=== PATIENT | female | born 1950 | race Caucasian/White ===

== ENCOUNTER → 2019-11-26 | Outpatient (CLI) | payer MEDICARE ==
[~2019-11-26] MED LIST: GADOBENATE DIMEGLUMINE 1 ML IV ONE
[2019-11-26 09:42] LABS: BLOOD UREA NITROGEN 8 mg/dL (7-26); BUN/CREATININE RATIO 14 (6-25); CREATININE, SERUM 0.57 mg/dL (0.57-1.11); EST GLOMERULAR FILTRATION RATE > 60 ML/MIN (60-)
--- NOTE | 2019-11-26 12:53 | Diagnostic Imaging Report ---
EXAM: CT left wrist WITHOUT contrast INDICATION: Wrist pain. Fall. Decreased range of motion. COMPARISON: None . TECHNIQUE: Left wrist was scanned utilizing a multidetector helical scanner without administration of IV contrast. Coronal and sagittal reformations were obtained. Routine protocol was performed. IV CONTRAST: None ORAL CONTRAST: Water COMPLICATIONS: None RADIATION DOSE: Total DLP: 110 mGy*cm Estimated effective dose: (DLP x 0.015 x size factor) mSv CTDIvol has been reviewed. It is below the limits set by the Radiation Protocol Committee (RPC). Dose modulation, iterative reconstruction, and/or weight based adjustment of the mA/kV was utilized to reduce the radiation dose to as low as reasonably achievable. FINDINGS: Comminuted intra-articular impaction type fracture involving the distal radius with extension dorsally involving Kevin's tubercle. Soft tissue edema about the wrist with small wrist joint effusion. No radiopaque foreign body. Scattered degenerative arthrosis most pronounced at the first carpal/metacarpal articulation. Old appearing ulnar styloid fracture fragment. Impression: Comminuted intra-articular impaction type fracture involving the distal radius with extension dorsally involving Kevin's tubercle. Signed by: Dr. Compa Álvarez M.D. on 11/26/2019 12:50 PM
--- NOTE | 2019-11-26 14:46 | Diagnostic Imaging Report ---
History: Headache, dizziness, meningioma, frequent falls Comparison studies: Brain MRIs 07/19/2011 and 07/07/2010 Technique: Sagittal and axial T2, axial DWI, precontrast axial T1 FLAIR, axial T2 FLAIR, axial T2*GRE and axial, coronal and sagittal T1 FS. Intravenous contrast: 11 cc of Gadavist. Findings: Scalp: No abnormal signal. No masses. Bone marrow: Normal in signal intensity. Brain sulci: Appropriate for age. Ventricles: Normal in size . No hydrocephalus. Extra axial spaces: Enhancing 11 mm x 9 mm x 12 mm (SI x AP x TV) dural based lesion at the right median superior parietal convexity without significant mass effect has minimally increased in size from the prior 08/19/2011 For differences in technique and slice selection (previously 10 mm in greatest dimension). Parenchyma: A 5 mm lesion with blooming artifact on the T2*GRE sequence related to prior hemorrhage in the right ventral ronen without surrounding edema is unchanged and is compatible with a cavernous malformation. No other mass or hemorrhage. No acute ischemia or enhancing abnormalities. A few scattered T2 FLAIR hyperintense foci in the supratentorial white matter which are mildly confluent in the bilateral periatrial periventricular white matter are nonspecific but are most compatible with chronic microvascular ischemic changes. Suprasellar region: No abnormalities. Craniocervical junction: Patent foramen magnum. No Chiari one malformation. Vessels: Normal flow-voids in the arteries and sinuses. Incidental findings: Bilateral intraocular lens replacements. Partially imaged postsurgical changes prior ACDF in the cervical spine. IMPRESSION: 1. A 12 mm right paramedian superior parietal meningioma without significant mass effect has minimally increased in size on the order of approximately 2 mm when compared to the prior 07/19/2011 brain MRI. 2. No other significant changes from the prior brain MRI of 07/19/2011. 3. Unchanged right pontine cavernous malformation. 4. Mild microvascular ischemic changes. Signed by: Dr. Jacinto Lees M.D. on 11/26/2019 2:43 PM
== END ==
LOC: MRI 08:40
PROVIDERS: ATTEND Family Medicine
DX: M25.532 Pain in left wrist (principal); S62.015A Nondisplaced fracture of distal pole of navicular [scaphoid] bone of left wrist, initial encounter for closed fracture; W19.XXXA Unspecified fall, initial encounter
CPT/HCPCS: 36415; 70553; 73200; 82565; 84520; A9577

== ENCOUNTER → 2020-08-19 | Outpatient (CLI) | payer MEDICARE ==
--- NOTE | 2020-08-19 12:21 | Diagnostic Imaging Report ---
Exam: Bone mineral density study. History: Osteopenia. Comparison: None Discussion: Evaluation of the left hip and lumbar spine was performed utilizing DEXA Hologic bone densitometer. The study is technically adequate. Left hip total bone mineral density: 0.507gm/cm2, T-score is -3.6, Z-score is -2.1. Left hip femoral neck bone mineral density: 0.470gm/cm2, T-score is -3.4, Z-score is -1.7. Lumbar spine total bone mineral density:0.763gm/cm2, T-score is-2.6, Z-score is -0.6. Impression: 1. Osteoporosis of the left hip, fracture risk is I 2. Osteoporosis of the lumbar spine, fracture risk is high Least significant change (LSC) for bone mineral density as provided by position clerk is 0.023 g/cm2 for lumbar spine and 0.027 g/cm2 for total hip. 10 -year fracture risk per WHO Fracture Risk Assessment Tool (FRAX) for: Not reported because some T-scores at or below -2.5 The patient's fracture risk is compared to an age-matched control. Medical evaluation for secondary causes of low bone bone mineral density may be appropriate. Correlate clinically for the necessity and timing of the next bone mineral density study. Signed by: Dr. Compa Álvarez M.D. on 08/19/2020 12:18 PM
== END ==
LOC: MAMMO 10:36
PROVIDERS: ATTEND Family Medicine
DX: Z12.31 Encounter for screening mammogram for malignant neoplasm of breast (principal); Z13.820 Encounter for screening for osteoporosis
CPT/HCPCS: 77067; 77080

== ENCOUNTER → 2021-03-15 | Outpatient (CLI) | payer MEDICARE | LOC: MRI 09:01 | PROVIDERS: ATTEND Psychiatry & Neurology Neurology | DX: M47.812 Spondylosis without myelopathy or radiculopathy, cervical region (principal); R20.0 Anesthesia of skin; M62.838 Other muscle spasm; G89.4 Chronic pain syndrome; Z98.890 Other specified postprocedural states; G43.711 Chronic migraine without aura, intractable, with status migrainosus; D32.9 Benign neoplasm of meninges, unspecified; Q28.3 Other malformations of cerebral vessels | CPT/HCPCS: 70553; 72156 ==

== ENCOUNTER 2021-12-28 19:37 | Inpatient (IN) | payer MEDICARE ==
[~2021-12-28] VITALS: Ht 152.4 cm; Wt 56.7 kg
[2021-12-28 20:46] LABS: BASOPHILS % 0.7 % (0.0-1.0); EOSINOPHILS # (AUTO) 0.2 (0.0-0.4); EOSINOPHILS % 3.9 % (0.0-6.0); HEMATOCRIT 38.6 % (34.2-44.1); HEMOGLOBIN 12.5 g/dL (12.0-16.0); LYMPHOCYTES # (AUTO) 2.2 (1.0-3.2); LYMPHOCYTES % 54.4 % (18.0-39.1); MEAN CORPUSCULAR HEMOGLOBIN 30.8 pg (28-32); MEAN CORPUSCULAR HGB CONC 32.4 g/dL (31-35); MEAN CORPUSCULAR VOLUME 95.1 fL (81-99); MONOCYTES # (AUTO) 0.5 (0.2-0.8); MONOCYTES % 11.6 % (4.4-11.3); NEUTROPHILS # (AUTO) 1.2 (2.1-6.9); NEUTROPHILS % 28.9 % (38.7-80.0); PLATELET COUNT 260 x10e3/uL (140-360); RED BLOOD COUNT 4.06 x10e6/uL (3.6-5.1); RED CELL DISTRIBUTION WIDTH 13.8 % (11.7-14.4)
[2021-12-28 20:54] LABS: INR 0.82; PROTHROMBIN TIME 12.1 seconds (11.9-14.5)
[2021-12-28 21:04] LABS: ALBUMIN 3.6 g/dL (3.5-5.0); ALBUMIN/GLOBULIN RATIO 1.5 (0.8-2.0); ANION GAP 13.3 mmol/L (8-16); CALCIUM 8.5 mg/dL (8.4-10.2); CREATININE, SERUM 0.59 mg/dL (0.57-1.11); POTASSIUM 3.3 mmol/L (3.5-5.1)
[2021-12-28 21:11] LABS: CREATINE KINASE MB 3.3 ng/mL (0-5.0)
[2021-12-28 22:30] VITALS: BP 134/85
[2021-12-29] VITALS (7 sets, daily range): BP systolic 105–134; BP diastolic 70–85
[2021-12-29] MEDS ORDERED: LOPRESSOR25 MG PO (03:45)
[2021-12-29] MEDS ORDERED: TEMAZEPAM15 MG PO (03:45)
[2021-12-29] MEDS ORDERED: ULTRAM50 MG PO (03:45)
[2021-12-29] MEDS ORDERED: MELOXICAM7.5 MG PO (03:45)
[2021-12-29] MEDS ORDERED: SERTRALINE HCL50 MG PO (03:45)
[2021-12-29] MEDS ORDERED: NEURONTIN300 MG PO (03:45)
[2021-12-29 05:37] LABS: EOSINOPHILS # (AUTO) 0.1 (0.0-0.4); EOSINOPHILS % 3.2 % (0.0-6.0); HEMATOCRIT 37.6 % (34.2-44.1); HEMOGLOBIN 12.2 g/dL (12.0-16.0); LYMPHOCYTES # (AUTO) 1.5 (1.0-3.2); LYMPHOCYTES % 47.9 % (18.0-39.1); MEAN CORPUSCULAR HEMOGLOBIN 30.7 pg (28-32); MEAN CORPUSCULAR HGB CONC 32.4 g/dL (31-35); MEAN CORPUSCULAR VOLUME 94.7 fL (81-99); MONOCYTES # (AUTO) 0.3 (0.2-0.8); MONOCYTES % 10.5 % (4.4-11.3); NEUTROPHILS # (AUTO) 1.2 (2.1-6.9); NEUTROPHILS % 36.8 % (38.7-80.0); PLATELET COUNT 263 x10e3/uL (140-360); RED BLOOD COUNT 3.97 x10e6/uL (3.6-5.1); RED CELL DISTRIBUTION WIDTH 13.7 % (11.7-14.4)
[2021-12-29 06:03] LABS: ALBUMIN 3.3 g/dL (3.5-5.0); ALBUMIN/GLOBULIN RATIO 1.5 (0.8-2.0); CALCIUM 8.1 mg/dL (8.4-10.2); CREATININE, SERUM 0.58 mg/dL (0.57-1.11)
[2021-12-29] MEDS: ACETAMINOPHEN 325 MG TAB PO PRN (06:31)
[2021-12-29] MEDS: METOPROLOL TARTRATE 50 MG TAB PO SCH ×3 (10:26→22:00)
[2021-12-29] MEDS: MELOXICAM 7.5 MG TAB PO SCH ×2 (10:27→17:41)
[2021-12-29] MEDS: GABAPENTIN 300 MG CAP PO SCH ×3 (10:27→22:00)
[2021-12-29] MEDS: TRAMADOL HCL 50 MG TAB PO PRN ×3 (10:41→22:10)
[2021-12-29] MEDS: SERTRALINE HCL 50 MG TAB PO SCH (22:00)
[2021-12-29] MEDS: TEMAZEPAM 15 MG CAP PO PRN (22:10)
[2021-12-30] VITALS (8 sets, daily range): BP systolic 105–139; BP diastolic 67–89
[2021-12-30] MEDS: ACETAMINOPHEN 325 MG TAB PO PRN (05:01)
[2021-12-30] MEDS: TRAMADOL HCL 50 MG TAB PO PRN (07:50)
[2021-12-30] MEDS: MELOXICAM 7.5 MG TAB PO SCH ×2 (08:55→16:05)
[2021-12-30] MEDS: GABAPENTIN 300 MG CAP PO SCH ×3 (08:55→20:31)
[2021-12-30] MEDS: METOPROLOL TARTRATE 50 MG TAB PO SCH ×3 (09:00→20:31)
[2021-12-30] MEDS ORDERED: HYDROMORPHONE 1MG/1ML INJ IV PRN ×2 (11:30→13:45)
[2021-12-30] MEDS ORDERED: ONDANSETRON HCL INJ 2MG/ML 2ML 2 MG/ML VIAL ONE (12:18)
[2021-12-30] MEDS ORDERED: POVIDONE IODINE 0.05% 0.05 % ML PO ONE (12:18)
[2021-12-30] MEDS ORDERED: PROPOFOL IV EMULSION 10 MG/ML 20 ML VIAL ONE (12:18)
[2021-12-30] MEDS ORDERED: SEVOFLURANE INHAL SOLN 250 ML PEN BTL ONE (12:18)
[2021-12-30] MEDS ORDERED: EPHEDRINE SULFATE INJ 50 MG/ML VIAL ONE (12:18)
[2021-12-30] MEDS ORDERED: LIDOCAINE HCL 2% LOCAL INJ 5 ML SDV VIAL INJ ONE (12:18)
[2021-12-30] MEDS ORDERED: DEXAMETHASONE SOD PHOS INJ 4 MG/ML SDV ONE (12:18)
[2021-12-30] MEDS ORDERED: SKELAXIN800 MG PO (13:41)
[2021-12-30] MEDS: METAXALONE 800 MG TAB PO SCH ×2 (14:10→20:31)
[2021-12-30] MEDS ORDERED: BUPIVACAINE 0.25% 30ML SDV ONE (17:22)
[2021-12-30] MEDS ORDERED: FENTANYL CITRATE/PF 100MCG/2 ML INJ ONE (17:35)
[2021-12-30] MEDS: SERTRALINE HCL 50 MG TAB PO SCH (20:31)
[2021-12-30] MEDS: TEMAZEPAM 15 MG CAP PO PRN (20:31)
[2021-12-30] MEDS: HYDROMORPHONE 1MG/1ML INJ IV PRN (20:31)
[2021-12-30] MEDS ORDERED: SODIUM CHLORIDE 0.9% 250ML 250 ML ONE (20:45)
[2021-12-30] MEDS: Cefazolin 1 GM in SODIUM CHLORIDE 0.9% 50ML 50 ML IV SCH (20:51)
[2021-12-31] VITALS (8 sets, daily range): BP systolic 100–134; BP diastolic 63–88
[2021-12-31] MEDS: HYDROMORPHONE 1MG/1ML INJ IV PRN ×3 (00:29→07:55)
[2021-12-31 05:08] LABS: BASOPHILS % 0.1 % (0.0-1.0); EOSINOPHILS % 0.1 % (0.0-6.0); HEMATOCRIT 37.8 % (34.2-44.1); HEMOGLOBIN 12.2 g/dL (12.0-16.0); LYMPHOCYTES # (AUTO) 1.3 (1.0-3.2); LYMPHOCYTES % 14.8 % (18.0-39.1); MEAN CORPUSCULAR HGB CONC 32.3 g/dL (31-35); MEAN CORPUSCULAR VOLUME 96.2 fL (81-99); MONOCYTES # (AUTO) 0.6 (0.2-0.8); MONOCYTES % 6.4 % (4.4-11.3); NEUTROPHILS # (AUTO) 6.7 (2.1-6.9); NEUTROPHILS % 78.2 % (38.7-80.0); PLATELET COUNT 247 x10e3/uL (140-360); RED BLOOD COUNT 3.93 x10e6/uL (3.6-5.1)
[2021-12-31] MEDS: Cefazolin 1 GM in SODIUM CHLORIDE 0.9% 50ML 50 ML IV SCH (05:18)
[2021-12-31 05:33] LABS: ANION GAP 13.5 mmol/L (8-16); CALCIUM 8.4 mg/dL (8.4-10.2); CREATININE, SERUM 0.6 mg/dL (0.57-1.11); POTASSIUM 4.5 mmol/L (3.5-5.1)
[2021-12-31] MEDS: GABAPENTIN 300 MG CAP PO SCH ×3 (08:38→21:01)
[2021-12-31] MEDS: MELOXICAM 7.5 MG TAB PO SCH ×2 (08:38→16:07)
[2021-12-31] MEDS: METOPROLOL TARTRATE 50 MG TAB PO SCH ×3 (08:38→21:57)
[2021-12-31] MEDS: METAXALONE 800 MG TAB PO SCH ×3 (08:38→21:01)
[2021-12-31] MEDS ORDERED: TRAMADOL HCL 50 MG TAB PO PRN (11:15)
[2021-12-31] MEDS ORDERED: KETOROLAC TROMETHAMINE 30 MG/ML VIAL IV ONE (11:15)
[2021-12-31] MEDS: PANTOPRAZOLE SOD 40 MG TABEC PO SCH (12:01)
[2021-12-31] MEDS: HYDROCODONE/APAP 7.5MG-325MG 1 EA TAB PO PRN ×2 (12:59→21:01)
[2021-12-31] MEDS: SERTRALINE HCL 50 MG TAB PO SCH (21:01)
[2021-12-31] MEDS: TEMAZEPAM 15 MG CAP PO PRN (22:46)
[2022-01-01] VITALS: BP 105/69
[2022-01-01 04:30] VITALS: BP 110/74
[2022-01-01] MEDS: HYDROCODONE/APAP 7.5MG-325MG 1 EA TAB PO PRN (04:36)
[2022-01-01 05:35] LABS: BASOPHILS % 0.3 % (0.0-1.0); EOSINOPHILS # (AUTO) 0.2 (0.0-0.4); EOSINOPHILS % 2.8 % (0.0-6.0); HEMOGLOBIN 11.6 g/dL (12.0-16.0); LYMPHOCYTES # (AUTO) 1.5 (1.0-3.2); MEAN CORPUSCULAR HEMOGLOBIN 31.2 pg (28-32); MEAN CORPUSCULAR HGB CONC 33.1 g/dL (31-35); MEAN CORPUSCULAR VOLUME 94.1 fL (81-99); MONOCYTES # (AUTO) 0.4 (0.2-0.8); MONOCYTES % 6.2 % (4.4-11.3); NEUTROPHILS % 65.4 % (38.7-80.0); PLATELET COUNT 215 x10e3/uL (140-360); RED BLOOD COUNT 3.72 x10e6/uL (3.6-5.1); RED CELL DISTRIBUTION WIDTH 13.9 % (11.7-14.4)
[2022-01-01 05:45] LABS: ANION GAP 10.7 mmol/L (8-16); CALCIUM 7.7 mg/dL (8.4-10.2); CREATININE, SERUM 0.54 mg/dL (0.57-1.11); POTASSIUM 4.7 mmol/L (3.5-5.1)
[2022-01-01 07:51] VITALS: BP 138/82
[2022-01-01 07:59] VITALS: BP 138/82
[2022-01-01] MEDS: METOPROLOL TARTRATE 50 MG TAB PO SCH (08:46)
[2022-01-01] MEDS: METAXALONE 800 MG TAB PO SCH (08:46)
[2022-01-01] MEDS: PANTOPRAZOLE SOD 40 MG TABEC PO SCH (08:46)
[2022-01-01] MEDS: MELOXICAM 7.5 MG TAB PO SCH (08:46)
[2022-01-01] MEDS: GABAPENTIN 300 MG CAP PO SCH (08:46)
[2022-01-01] MEDS ORDERED: OYST-CAL-D 500MG TABLET PO ONE (09:15)
[2022-01-01] MEDS ORDERED: HYDROCODON-ACE1 EA12 PO (10:55)
[2022-01-01 11:12] VITALS: BP 128/93
== END 2022-01-01 12:18 | disposition home or self-care (01) | DRG 502 ==
LOC: ER 19:45 → ERHOLD 21:07 → MED/SURG 22:10
PROC: 0KCL0ZZ Extirpation of Matter from Left Abdomen Muscle, Open Approach (ICD-10-PCS; principal; 2021-12-30 16:51)
DX: M79.81 Nontraumatic hematoma of soft tissue (principal); I10 Essential (primary) hypertension; Z91.041 Radiographic dye allergy status; Z20.822 Contact with and (suspected) exposure to COVID-19; F41.9 Anxiety disorder, unspecified; G89.29 Other chronic pain
CPT/HCPCS: 36415; 80048; 80053; 82550; 82553; 84484; 85025; 85610; 93005; 94799; 99284; J0690; J1100; J1170; J1885; J2001; J2405; J3010; J7050; U0002

== ENCOUNTER → 2022-03-27 | Day surgery (SDC) | payer MEDICARE ==
[2022-03-23 08:42] LABS: BASOPHILS % 0.6 % (0.0-1.0); EOSINOPHILS # (AUTO) 0.1 (0.0-0.4); EOSINOPHILS % 1.9 % (0.0-6.0); HEMOGLOBIN 12.2 g/dL (12.0-16.0); LYMPHOCYTES # (AUTO) 1.4 (1.0-3.2); LYMPHOCYTES % 19.5 % (18.0-39.1); MEAN CORPUSCULAR HEMOGLOBIN 31.7 pg (28-32); MEAN CORPUSCULAR HGB CONC 31.3 g/dL (31-35); MEAN CORPUSCULAR VOLUME 101.3 fL (81-99); MONOCYTES # (AUTO) 0.6 (0.2-0.8); MONOCYTES % 8.9 % (4.4-11.3); NEUTROPHILS % 68.8 % (38.7-80.0); PLATELET COUNT 276 x10e3/uL (140-360); RED BLOOD COUNT 3.85 x10e6/uL (3.6-5.1); RED CELL DISTRIBUTION WIDTH 14.7 % (11.7-14.4)
[~2022-03-27] MED LIST changes: +FENTANYL CITRATE/PF 100MCG/2 ML INJ ONE; -GADOBENATE DIMEGLUMINE 1 ML IV ONE; +GLUCAGON FOR INJ 1 MG VIAL ONE; +HYDROCODON-ACE1 EA12 PO; +HYOSCYAMINE SULFATE 0.5 MG/ML INJ ONE; +LIDOCAINE HCL 2% LOCAL INJ 5 ML SDV VIAL INJ ONE; +LOPRESSOR25 MG PO; +MELOXICAM7.5 MG PO; +MIDAZOLAM HCL 2 MG/2 ML VIAL ONE; +NEURONTIN300 MG PO; +PROPOFOL IV EMULSION 10 MG/ML 20 ML VIAL ONE; +SERTRALINE HCL50 MG PO; +SKELAXIN800 MG PO; +TEMAZEPAM15 MG PO; +ULTRAM50 MG PO
[2022-03-27 09:10] VITALS: BP 122/83
== END | disposition home or self-care (01) ==
LOC: OR 06:53
PROVIDERS: ATTEND Internal Medicine Gastroenterology
DX: K59.09 Other constipation (principal); D12.0 Benign neoplasm of cecum; K63.89 Other specified diseases of intestine; K57.30 Diverticulosis of large intestine without perforation or abscess without bleeding; K64.8 Other hemorrhoids; Z71.3 Dietary counseling and surveillance; I10 Essential (primary) hypertension; R00.1 Bradycardia, unspecified; Z01.810 Encounter for preprocedural cardiovascular examination; Z01.812 Encounter for preprocedural laboratory examination; Z20.822 Contact with and (suspected) exposure to COVID-19; Z79.899 Other long term (current) drug therapy; Z86.2 Personal history of diseases of the blood and blood-forming organs and certain disorders involving the immune mechanism
CPT/HCPCS: 0223U; 36415; 45380; 45385; 85025; 93005; J1610; J1980; J2001; J2250; J2704; J3010; 45378

== ENCOUNTER 2022-03-30 12:07 | Emergency (ER) | payer MEDICARE, OTHER ==
[~2022-03-30] VITALS: Ht 152.4 cm; Wt 56.7 kg
[~2022-03-30 12:07] MED LIST changes: -FENTANYL CITRATE/PF 100MCG/2 ML INJ ONE; -GLUCAGON FOR INJ 1 MG VIAL ONE; -HYOSCYAMINE SULFATE 0.5 MG/ML INJ ONE; -LIDOCAINE HCL 2% LOCAL INJ 5 ML SDV VIAL INJ ONE; -MIDAZOLAM HCL 2 MG/2 ML VIAL ONE; -PROPOFOL IV EMULSION 10 MG/ML 20 ML VIAL ONE
[2022-03-30] MEDS ORDERED: ONDANSETRON HCL INJ 2MG/ML 2ML 2 MG/ML VIAL IV STA (12:51)
[2022-03-30] MEDS ORDERED: SODIUM CHLORIDE 0.9% 1000ML 1,000 ML IV STA (12:51)
[2022-03-30 13:20] LABS: BASOPHILS % 0.6 % (0.0-1.0); EOSINOPHILS % 0.8 % (0.0-6.0); HEMOGLOBIN 8.3 g/dL (12.0-16.0); LYMPHOCYTES # (AUTO) 1.2 (1.0-3.2); LYMPHOCYTES % 24.4 % (18.0-39.1); MEAN CORPUSCULAR HEMOGLOBIN 31.7 pg (28-32); MEAN CORPUSCULAR HGB CONC 31.9 g/dL (31-35); MEAN CORPUSCULAR VOLUME 99.2 fL (81-99); MONOCYTES # (AUTO) 0.5 (0.2-0.8); MONOCYTES % 11.2 % (4.4-11.3); NEUTROPHILS % 62.6 % (38.7-80.0); PLATELET COUNT 252 x10e3/uL (140-360); RED BLOOD COUNT 2.62 x10e6/uL (3.6-5.1); RED CELL DISTRIBUTION WIDTH 14.4 % (11.7-14.4)
[2022-03-30] MEDS ORDERED: Morphine 2mg Syringe 2 MG/ML SYR IV ONE (13:30)
[2022-03-30 13:31] LABS: INR 0.9
[2022-03-30 13:32] LABS: PARTIAL THROMBOPLASTIN TIME 28.3 seconds (23.8-35.5)
[2022-03-30 13:41] LABS: ALBUMIN/GLOBULIN RATIO 1.1 (0.8-2.0); ANION GAP 13.7 mmol/L (8-16); CALCIUM 8.1 mg/dL (8.4-10.2); CREATININE, SERUM 0.62 mg/dL (0.57-1.11); POTASSIUM 3.7 mmol/L (3.5-5.1)
[2022-03-30 13:48] LABS: CREATINE KINASE MB 1.7 ng/mL (0-5.0)
[2022-03-30] MEDS ORDERED: IOPAMIDOL 370 MG/ML 100 ML INFUS..BTL INJ ONE ×2 (13:59→14:32)
[2022-03-30 14:16] LABS: CLARITY,URINE CLEAR (CLEAR); COLOR,URINE YELLOW (YELLOW)
[2022-03-30 14:17] LABS: BACTERIA,URINE RARE /HPF; EPITHELIAL CELLS,URINE RARE /LPF; KETONES,URINE NEGATIVE (NEGATIVE); LEUKOCYTE ESTERASE ,URINE NEGATIVE (NEGATIVE); NITRITE,URINE NEGATIVE (NEGATIVE); PROTEIN,URINE DIPSTICK NEGATIVE (NEGATIVE); RBC,URINE 0-5 /HPF (0-5); URINE UROBILINOGEN 0.2 mg/dL (0.2 - 1); WBC,URINE (MAN) 0-5 /HPF (0-5)
[2022-03-30] MEDS ORDERED: SODIUM CHLORIDE 0.9% 250ML 250 ML IV ONE (15:15)
[2022-03-30 16:17] VITALS: BP 119/89
== END 2022-03-30 16:00 | disposition other institution (70) ==
LOC: ER 12:26
DX: R10.32 Left lower quadrant pain (principal); S36.892A Contusion of other intra-abdominal organs, initial encounter; D73.89 Other diseases of spleen; W18.30XA Fall on same level, unspecified, initial encounter; Y93.01 Activity, walking, marching and hiking; Y92.89 Other specified places as the place of occurrence of the external cause; I10 Essential (primary) hypertension; Z87.19 Personal history of other diseases of the digestive system; Z20.822 Contact with and (suspected) exposure to COVID-19
CPT/HCPCS: 36415; 70450; 72125; 74177; 80053; 81001; 82550; 82553; 83690; 84484; 85025; 85610; 85730; 86850; 86900; 93005; 99284; J2270; J2405; J7030; Q9967; U0002; 86920

== ENCOUNTER → 2022-07-26 | Outpatient (CLI) | payer MEDICARE | LOC: MAMMO 08:23 | PROVIDERS: ATTEND Family Medicine | DX: Z12.31 Encounter for screening mammogram for malignant neoplasm of breast (principal); M81.8 Other osteoporosis without current pathological fracture | CPT/HCPCS: 77067; 77080 ==

== ENCOUNTER → 2022-10-12 | Outpatient (CLI) | payer MEDICARE ==
[~2022-10-12] MED LIST changes: +GADOBENATE DIMEGLUMINE 1 ML IV ONE
[2022-10-12 08:34] LABS: CREATININE, SERUM 0.56 mg/dL (0.57-1.11)
== END ==
LOC: MRI 07:45
PROVIDERS: ATTEND Otolaryngology
DX: H90.3 Sensorineural hearing loss, bilateral (principal)
CPT/HCPCS: 36415; 70553; 82565; 84520; A9577